=== PATIENT | female | born 1985 | race Caucasian/White ===

== ENCOUNTER 2020-01-19 06:27 | Emergency (ER) | payer OTHER, SELFPAY ==
--- NOTE | ~2020-01-19 | CT_ITS ---
EXAMINATION: CT abdomen pelvis wo con DATE: 01/19/2020 07:41 INDICATION: Right flank pain. TECHNIQUE: Computed tomography (CT) of the abdomen and pelvis was performed without intravenous contr ast. Automated exposure control and iterative reconstruction technique were employed. The dose-length product was 297.69 mGy-cm. COMPARISON: None. FINDINGS: The visualized portions of the lung bases demonstrate mild atelectasis in right middle lobe . No pleural effusion. The heart size is normal. No pericardial effusion. There is a small sliding hi atal hernia. The liver, gallbladder, spleen, pancreas, adrenal glands, and left kidney are normal. Th ere is mild right hydronephrosis and hydroureter. There is a 3 mm stone at right ureterovesicular arleth ction. There are no dilated loops of bowel. The appendix is normal. There are no pathologically enlar ged lymph nodes. There is trace pelvic ascites, likely physiologic. There is lumbar levocurvature. IMPRESSION: 1. 3 mm stone at right ureterovesicular junction with mild right hydronephrosis and hydroureter. 2. Small sliding hiatal hernia. Reviewed, dictated and finalized at location A. [employer] TECHNICIAN
[2020-01-19 06:42] VITALS: BP 119/69; PULSE 94; RESP 16; TEMP 35.8; O2SAT 100
[2020-01-19 07:06] LABS: Basophils Percent Auto 0.3 % (0.2-1.2); Eosinophils Percent Auto 0.3 % (0-4.4); Hematocrit 32.3 % (37.0-47.0); Hemoglobin 10.3 g/dL (12.0-15.0); Immature Granulocyte Absolute 0.03 K/mm3 (0.00-0.031); Immature Granulocyte Percent A 0.3 % (0-0.5); Lymphocytes Absolute Auto 2.11 K/mm3 (0.9-3.2); Lymphocytes Percent Auto 23.2 % (18.3-44.2); Mean Corpuscular HGB Conc 31.9 g/dl (32-36); Mean Corpuscular Hemoglobin 27.8 pg (26-34); Mean Corpuscular Volume 87.1 fl (80-100); Mean Platelet Volume 10.6 fl (7.4-10.4); Monocytes Absolute Auto 0.5 K/mm3 (0.1-0.6); Monocytes Percent Auto 5.2 % (2.6-8.5); Neutrophils Absolute Auto 6.4 K/mm3 (1.3-6.7); Neutrophils Percent Auto 70.7 % (45.5-73.1); Platelet Count Result 302 k/mm3 (150-375); Red Blood Count 3.71 M/mm3 (4.2-5.4); Red Cell Distribution Width 14.5 % (11.5-14.5); White Blood Count 9.1 K/mm3 (4.5-10.0)
[2020-01-19 07:09] LABS: Add Urine Microscopic? YES; Amorphous Sediment Urine Few; Appearance Urine Cloudy (Clear); Bacteria Urine Trace /hpf; Bilirubin Urine Negative (Negative); Blood Urine Negative (Negative); Color Urine Yellow (Yellow); Glucose Urine UA Negative (Negative); Ketones Urine Negative (Negative); Leukocyte Esterase Ur Trace LEU/UL (Negative); Mucus Urine Rare /lpf; Nitrate Urine Negative (Negative); Protein Urine Negative (Negative); RBC Urine 0-2 /hpf (0-2); Specific Grav Ur 1.017 (1.001-1.035); Squamous Epithelial Cell Urine Moderate /hpf (Few); Urobilinogen Urine Negative mg/dL (<2.0)
[2020-01-19] MEDS: ONDANSETRON INJ 4 MG/2 ML VIAL IV PUSH (07:13)
[2020-01-19] MEDS: SODIUM CHLORIDE 0.9% IV 1,000 ML 150 ML IV CONT (07:13)
[2020-01-19] MEDS: MORPHINE SULFATE 4 MG/ML INJ IV PUSH (07:13)
[2020-01-19 07:48] LABS: Alanine Aminotransferase 19 U/L (4-35); Albumin Level 4.4 g/dL (3.5-5.1); Alkaline Phosphatase 45 U/L (38-126); Aspartate Amino Transferase 25 U/L (14-36); Bilirubin,Total 0.2 mg/dL (0.2-1.3); Blood Urea Nitrogen 12 mg/dL (7-17); Calcium 9.4 mg/dL (8.4-10.2); Carbon Dioxide 18 mmol/L (22-30); Chloride 104 mmol/L (98-107); Estimated CRCL calculation 105 ml/min; Estimated Glomerular Filt Rate > 60; Glucose 135 mg/dL (65-105); Potassium 3.9 mmol/L (3.4-5.0); Sodium 138 mmol/L (137-145)
[2020-01-19 08:03] LABS: Beta HCG Quantitative < 2.39 mIU/ML
--- NOTE | 2020-01-19 08:44 | ED.GENADULT ---
HPI - General Adult General Chief complaint: Nausea/Vomiting/Diarrhea Stated complaint: my ovary and my back Time Seen by Provider: 01/19/20 06:43 Source: patient and family Mode of arrival: ambulatory Limitations: no limitations History of Present Illness HPI narrative: 34-year-old with no major medical problems here with complaints of right-sided abdominal pain started about few hours ago. Patient states that she woke up with severe pain in the right side of the abdomen radiating to the groin. She denies any fever or chills. No previous history of kidney stones. Denies any blood in the urine. Also complains of intense nausea and vomiting x1. Onset (ago): hour(s) (3) Location: abdomen Radiation: abdomen Severity: severe Severity scale (1-10): 9 Quality: stabbing and sharp Pain Consistency: constant Associated symptoms: nausea/vomiting Treatments prior to arrival: none Related Data Allergies Allergy/AdvReac Type Severity Reaction Status Date / Time No Known Allergies Allergy Verified 11/14/18 05:07 Review of Systems Review of Systems: All systems reviewed & are unremarkable except as noted in HPI and below Constitutional: Constitutional: Reports no additional constitutional complaints Eyes: Eyes: Reports no additional eye complaints ENT: Reports system reviewed and no additional complaints, except as documented Cardiovascular: Cardiovascular: Reports no additional cardiovascular complaints Respiratory: Respiratory: Reports no additional respiratory complaints Gastrointestinal: Gastrointestinal: Reports abdominal pain Genitourinary: Genitourinary: Reports no additional female genitourinary complaints Musculoskeletal: Musculoskeletal: Reports no additional musculoskeletal complaints Exam Narrative: Exam Narrative: GENERAL: Well-appearing, well-nourished, and in moderate distress sec to pain. HEAD: Normocephalic, atraumatic. EYES: PERRLA and EOMI. ENT: Nares clear, s. Mucous membranes moist. NECK: Supple. CHEST: Clear to auscultation. No respiratory distress. HEART: Regular rate and rhythm. No murmur heard. Normal peripheral pulses. ABDOMEN: Soft, non tender, non distended, normal active bowel sounds. EXTREMITIES: Normal range of motion. No edema. SKIN: Warm, dry, no rash. NEURO: No focal deficits. Alert and oriented x3. PSYCH: Normal mood and affect. Course Course Emergency Course: After receiving IV morphine and fluids, patient pain has much subsided CT shows a 3 mm stone which is in the right UVJ. I discussed lab, CT findings with the patient family. She does feel comfortable going home. Advised her to drink plenty of fluids, take pain medication as prescribed follow-up with her primary doctor or with urology if symptoms do not improve i Vital Signs Vital signs: Vital Signs Temperature 35.8 C L 01/19/20 06:42 Pulse Rate 94 01/19/20 06:42 Respiratory Rate 16 01/19/20 06:42 Blood Pressure 119/69 01/19/20 06:42 Pulse Oximetry 100 01/19/20 06:42 Temperature 35.8 C L 01/19/20 06:42 Pulse Rate 94 01/19/20 06:42 Respiratory Rate 16 01/19/20 06:42 Blood Pressure 119/69 01/19/20 06:42 Pulse Oximetry 100 01/19/20 06:42 Medical Decision Making MDM Narrative Medical decision making narrative: With a sudden onset of right lower abdominal pain associated with nausea very uncomfortable appears to be very uncomfortable it appears to be a renal stone will order CBC chemistry and CT scan. Meanwhile her pain I will start her on IV morphine and Zofran for nausea. Differential Diagnosis Differential Diagnosis: Ureteral stone, pyelonephritis, ruptured ovarian cyst, appendicitis Vital Signs Vital Signs: Vital Signs Temperature 35.8 C L 01/19/20 06:42 Pulse Rate 94 01/19/20 06:42 Respiratory Rate 16 01/19/20 06:42 Blood Pressure 119/69 01/19/20 06:42 Pulse Oximetry 100 01/19/20 06:42 Temperature 35.8 C L 01/19/20 06:42 Pulse Rate 94 01/19/20 06:42 Re
[2020-01-19 09:14] VITALS: BP 117/75; PULSE 86; RESP 20; O2SAT 99
== END 2020-01-19 09:17 | disposition home or self-care (01) ==
PROVIDERS: Emergency Provider Family Medicine; PCP Family Medicine
DX: N13.2 Hydronephrosis with renal and ureteral calculous obstruction (principal); K44.9 Diaphragmatic hernia without obstruction or gangrene
CPT/HCPCS: 36415; 74176; 80053; 81001; 81025; 84702; 85025; 96361; 96374; 96375; 99284; J2270; J2405; J7030

== ENCOUNTER 2024-11-14 10:15 | Emergency (ER) | payer OTHER, SELFPAY ==
[2024-11-14 10:40] VITALS: BP 124/78; PULSE 76; RESP 20; TEMP 36.3; O2SAT 99
--- NOTE | 2024-11-14 11:13 | ED_ITS ---
HPI - Eye Problem General Stated complaint: Right Eye Pain Time Seen by Provider: 11/14/24 11:13 Source: patient, RN notes reviewed and old records reviewed Mode of arrival: ambulatory Limitations: no limitations History of Present Illness HPI Narrative: Patient presents with complaints of right eye irritation that began last night. Patient states that she initially felt of foreign body sensation, now has irrita tion, itching, burning. She reports that symptoms were worse upon awakening this morning. She typically wears contact lenses, but was not wearing them at the onset of her symptoms. She is wearing eye makeup on arrival. She does have some drainage noted from the right eye Related Data Allergies Allergy/AdvReac Type Severity Reaction Status Date / Time No Known Allergies Allergy Verified 11/14/24 10:51 Review of Systems Review of Systems: All systems reviewed & are unremarkable except as noted in HPI and below Constitutional: Constitutional: Reports no additional constitutional complaints Eyes: Eyes: Reports as per HPI, Reports eye discharge (right), Reports irritation (right) and Reports itchy eyes (right) ENT: Reports system reviewed and no additional complaints, except as documented Cardiovascular: Cardiovascular: Reports no additional cardiovascular complaints Respiratory: Respiratory: Reports no additional respiratory complaints Gastrointestinal: Gastrointestinal: Reports no additional gastrointestinal complaints PMFSH Comments At the time of my signature, I reviewed and agree with the nursing past medical, surgical, social, and family history. There is no relevant family history pertinent to the patient complaint. Exam Const: General: cooperative, no acute distress, alert and awake Orientation/consciousness: oriented to person, oriented to place and oriented to time HENMT: Head: normal to inspection Eyes: Periorbital: periorbital findings normal Conjunctivae: conjunctival abnormality right conjunctival injection and discharge Sclera: scleral abnormality right scleral injection; without foreign bodies Resp: Effort & Inspection: normal respiratory effort and able to speak in complete sentences Auscultation: clear to auscultation bilaterally, no crackles, no rales, no rhonchi and no wheezes Cardio: Palpation: normal PMI Rate: regular rate Rhythm: regular rhythm Heart sounds: S1 normal heart sound present and S2 normal heart sound present Neuro: General: oriented to person, oriented to place and oriented to time Cranial nerves: Yes CN's II-XII intact bilaterally Psych: Appearance: grossly normal Thought process: Normal thought process present Insight: Good insight present (Psych) Judgement: Good judgement present (Psych) Course Course Level of Care: Express Care Visit Vital Signs Vital signs: Reviewed MDM - Eye Problem MDM Narrative Medical decision making narrative: No foreign body noted on exam. History and exam consistent with conjunctivitis. Treat as such. Patient advised to discard cosmetics, do not wear contact lenses until treatment complete. Follow with professional sports scout. Discharge instructions reviewed with patient, as well as provided in writing per nursing staff. The instructions also include specific and strict return/GO TO THE ER as well as f/u information. All questions have been answered, and the patient deny any further questions with discharge and discharge plan. Some parts of this dictation were generated by voice recognition software and may contain typographical and/or grammatical inaccuracies. Differential Diagnosis Differential diagnosis: Likely corneal abrasion and conjunctivitis Medical Records Attestation: I reviewed the patient's medical records. Discharge Plan Discharge Clinical Impression: Conjunctivitis Qualifiers: Conjunctivitis type: unspecified Laterality: right Qualified Code(s): H10.9 - Unspecified conjunctivitis Patient Disposition: Home, Self-Care Condition: Stable Instructions: Antibiotic Form, Conjunctivitis (ED) Additional Instructions: Discard cosmetics that you abuse since onset of symptoms. Use medications as prescribed. Follow-up primary care provider. air transport professionals or emergency department for new or worsened Patient Language: Nepali Prescriptions: New tobramycin 0.3 % drops 1 drp RIGHT EYE Q4H Qty: 5 0RF Follow-up/Referrals: Reid,Krzysztof Hamm MD [Primary Care Provider] - 2 Weeks Time of Disposition: 11:19
== END 2024-11-14 11:25 | disposition home or self-care (01) ==
PROVIDERS: Emergency Provider Nurse Practitioner Family; PCP Family Medicine
DX: H10.9 Unspecified conjunctivitis (principal)
CPT/HCPCS: 99213; G0463